=== PATIENT | female | born 1965 | race African-American/Black ===

== ENCOUNTER 2021-06-01 00:06 | Emergency (ER) | payer MEDICARE, OTHER ==
[2021-06-01] MEDS ORDERED: Metoclopramide HCl 10 MG/2 ML VIAL ONE (00:46)
[2021-06-01] MEDS ORDERED: cloNIDine 0.1 MG TAB ONE (00:48)
[2021-06-01] MEDS ORDERED: Ketorolac Tromethamine 30 MG/ML VIAL ONE (02:19)
== END 2021-06-01 02:57 | disposition home or self-care (01) ==
LOC: CSHERS 00:06
DX: G43.909 Migraine, unspecified, not intractable, without status migrainosus (principal); I10 Essential (primary) hypertension; M32.9 Systemic lupus erythematosus, unspecified; Z79.899 Other long term (current) drug therapy
CPT/HCPCS: 70450; 96374; 96375; J1885; J2765

== ENCOUNTER 2022-11-25 19:39 | Emergency (ER) | payer MEDICARE, OTHER ==
[2022-11-26] MEDS ORDERED: Ketorolac Tromethamine 30 MG/ML VIAL ONE (07:54)
== END 2022-11-25 20:23 | disposition left against medical advice (07) ==
LOC: CSHERS 19:39
DX: Z53.21 Procedure and treatment not carried out due to patient leaving prior to being seen by health care provider (principal)

== ENCOUNTER 2022-11-26 06:51 | Emergency (ER) | payer MEDICARE, OTHER | END 2022-11-26 08:00 | disposition home or self-care (01) | LOC: CSHERS 06:51 | DX: G89.29 Other chronic pain (principal); M25.561 Pain in right knee; I10 Essential (primary) hypertension; E78.5 Hyperlipidemia, unspecified; E66.9 Obesity, unspecified; Z79.899 Other long term (current) drug therapy | CPT/HCPCS: 99283; J1885 ==

== ENCOUNTER 2025-01-25 17:12 | Emergency (ER) | payer OTHER, MEDICAID ==
[2025-01-25] MEDS ORDERED: cloNIDine 0.1 MG TAB ONE (17:50)
[2025-01-25] MEDS ORDERED: Carvedilol 6.25 MG TAB ONE (17:51)
[2025-01-25] MEDS ORDERED: Lisinopril 20 MG TAB PO SCH (18:15)
[2025-01-25 18:19] LABS: #Basophils Less than 0.03 10x3/uL (0.0-0.2); #Eosinophils Less than 0.03 10x3/uL (0.0-0.5); #Monocytes 0.72 10x3/uL (0.0-1.1); #Neutrophils 1.07 10x3/uL (1.5-8.4); %Basophils 0.3 % (0.0-2.0); %Eosinophils 0.6 % (0.0-6.0); %Lymphocytes 47.0 % (18.0-47.0); %Monocytes 20.9 % (0.0-10.0); %Neutrophils 30.9 % (40.0-75.0); Hematocrit 29.4 % (34.9-44.5); Hemoglobin 10.0 g/dL (12.0-15.5); Mean Corpuscular Hemoglobin 36.0 pg (27.0-33.0); Mean Corpuscular Volume 105.8 fL (81.6-98.3); Platelet Count 122 10x3/uL (150-450); Red Blood Cell (RBC) Count 2.78 10x6/uL (3.90-5.03); White Blood Cell (WBC) Count 3.45 10x3/uL (3.5-10.5)
[2025-01-25 18:21] LABS: ALT (SGPT) 11 U/L (Less than 34); AST (SGOT) 22 U/L (11-34); Albumin 3.0 g/dL (3.1-4.5); Alkaline Phosphatase 76 U/L (40-110); Anion Gap 13 mmol/L (10-20); BUN (Urea Nitrogen) 21 mg/dL (9.8-20.1); Bilirubin, Total 0.3 mg/dL (0.3-1.2); Calc. Creatinine Clearance 0 mL/min (70-130); Calcium 8.4 mg/dL (7.8-10.44); Carbon Dioxide 23 mmol/L (23-31); Chloride 114 mmol/L (98-107); Globulin 4.0 g/dL (2.4-3.5); Glucose 109 mg/dL (80-115); Potassium 4.4 mmol/L (3.5-5.1); Sodium 146 mmol/L (136-145)
[2025-01-25 18:27] LABS: Troponin I 0.015 ng/mL (< 0.028)
[2025-01-25 19:10] LABS: Glucose, Urine (Dipstick) Normal (Negative); Leukocyte Negative (Negative); Protein, Urine (Dipstick) 500 mg/dl (Neg-Trace); Specific Gravity, Urine 1.020 (1.005-1.030)
[2025-01-25 19:30] LABS: Bacteria/HPF 2+ HPF (None Seen); CAUTI Indications for Culture Pelvic or flank pain; RBC/HPF 0-3 HPF (0-3); WBC/HPF 0-3 HPF (0-3)
[2025-01-25 19:31] LABS: Mucous/LPF 1+ LPF (<2+)
[2025-01-25 19:32] LABS: Urine Culture Reflex No No
== END 2025-01-25 20:10 | disposition home or self-care (01) ==
LOC: CSHERS 17:12
DX: I16.0 Hypertensive urgency (principal); I10 Essential (primary) hypertension; R60.0 Localized edema
CPT/HCPCS: 36415; 70450; 71045; 80053; 81001; 83880; 84484; 85025; 93005; 93010